=== PATIENT | female | born 2000 | race Caucasian/White ===

== ENCOUNTER 2021-08-27 21:21 | Emergency (ER) | payer OTHER, SELFPAY ==
[2021-08-27 22:05] VITALS: BP 122/70; PULSE 94; RESP 16; TEMP 37.9; O2SAT 98; BMI 20.5
[2021-08-27 22:29] LABS: COVID-19 Test Positive (Negative); IDNOW Serial# 9DD0AD1C
--- NOTE | 2021-08-27 22:53 | ED_ITS ---
HPI - URI/Sore Throat General Chief Complaint: Upper Respiratory Symptoms Stated Complaint: body aches headache Time Seen by Provider: 08/27/21 22:53 Source: patient Mode of arrival: ambulatory History of Present Illness HPI Narrative: 21-year-old female presents with her mother for suspected COVID- 19 exposure and reports having COVID like symptoms. However, she denies any pain, discomfort, or shortness of breath but states she has had a cough and sore throat as well as body aches. Related Data Allergies Allergy/AdvReac Type Severity Reaction Status Date / Time Penicillins Allergy Rash Verified 08/27/21 22:04 Review of Systems Review of Systems: Pertinent positives and negatives as stated in HPI 10 point review of systems is otherwise negative. [facility] Past Medical History Source: nursing notes reviewed Social History Social History Advance Directives: No Advance Directives Information Provided: No Physical Exam Vital Signs: Vital Signs: Last Vital Signs Temp 100.4 F 08/27/21 23:53 Pulse 97 08/27/21 23:53 Resp 16 08/27/21 23:53 BP 120/76 08/27/21 23:53 Pulse Ox 97 08/27/21 23:53 BMI result Body Mass Index 20.5 VITAL SIGNS: Reviewed. GENERAL: Well developed, well nourished, in no acute distress. HEAD: Normocephalic/atraumatic EYES: PERRLA, EOMI EARS: Ext canals without abnormality, TMs non-bulging and non-erythematous NOSE: Nares patent bilateral OROPHARYNX: no oral lesions noted, posterior pharynx clear and non-erythematous without noted tonsillar enlargement/erythema/exudates NECK: Supple, no adenopathy LUNGS: Normal breath sounds. SpO2<97> CARDIOVASCULAR: Regular rate and rhythm without noted murmurs ABDOMEN: Soft, non-tender, non-distended with bowel sounds. NEUROLOGIC: Alert and oriented x 4. Course Course Course Narrative: 21-year-old female with history and clinical presentation consistent with close COVID-19 exposure and viral symptoms and is found to be COVID-19 positive. Patient was informed of all results, provided with combination analgesics, and provided with instructions on isolation procedures. She was otherwise discharged home in stable condition MDM - URI/Sore Throat Lab Data Labs: Lab Results 08/27/21 Range/Units 22:10 COVID-19 (ELA) Positive A (Negative) COVID-19 Clin Com See Note Discharge Plan Discharge Clinical Impression: Lab test positive for detection of COVID-19 virus, Viral syndrome, Close exposure to COVID-19 virus Patient Disposition: Home, Self-Care Instructions: Viral Syndrome (ED), COVID-19 (Coronavirus Disease 2019) (ED) Additional Instructions: 1. You must isolate for the next 14 days as per all state, Federal guidelines. 2. Recommend using [id number] Tylenol/ibuprofen as needed for body aches, temperatures greater than 100.4. 3. Follow-up with your primary care provider tomorrow morning via telemedicine for re-evaluation in 2-3 days. Return to the ER for worsening symptoms. Interventions: ED Discharge Assessment Last Done: 08/27/21 23:54 Discharge Date/Time: 08/27/21 23:54
[2021-08-27] MEDS: Acetaminophen 325 MG TABLET 975 MG PO (23:46)
[2021-08-27] MEDS: Ibuprofen 400 MG TABLET PO (23:46)
[2021-08-27 23:53] VITALS: BP 120/76; PULSE 97; RESP 16; TEMP 38; O2SAT 97
== END 2021-08-27 23:54 | disposition home or self-care (01) ==
PROVIDERS: Emergency Provider Student in an Organized Health Care Education/Training Program
DX: U07.1 COVID-19 (principal); R51.9 Headache, unspecified
CPT/HCPCS: 36415; 87635; 99283